=== PATIENT | male | born 2000 | race Caucasian/White ===

== ENCOUNTER 2021-09-20 01:20 | Emergency (ER) | payer OTHER, SELFPAY ==
[2021-09-20 01:22] VITALS: BP 125/70; PULSE 89; RESP 16; TEMP 36.7; O2SAT 99; BMI 26.3
[2021-09-20 01:29] VITALS: BMI 26.3
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
[2021-09-20 03:06] VITALS: BP 120/67; PULSE 81; RESP 16; TEMP 36.7; O2SAT 99
== END 2021-09-20 03:14 | disposition home or self-care (01) ==
PROVIDERS: Emergency Provider Emergency Medicine
DX: S43.401A Unspecified sprain of right shoulder joint, initial encounter (principal); V86.95XA Unspecified occupant of 3- or 4- wheeled all-terrain vehicle (ATV) injured in nontraffic accident, initial encounter
CPT/HCPCS: 71046; 72170; 73030; 99284